=== PATIENT | male | born 1955 | race Caucasian/White ===

== ENCOUNTER 2016-12-22 06:34 | Emergency (ER) | payer OTHER ==
[~2016-12-22] VITALS: Ht 175.3 cm; Wt 92.0 kg
[~2016-12-22 06:34] MED LIST: ALBU6.7H INH; DOXY100T PO; LORA5SOL3 PO; LORC10TA PO; MEDR4PAK3 PO; PRED20 PO; VENTAER INH; Z.0.NO CURRENT MEDS; ZITH200S PO
[2016-12-22 06:38] VITALS: BP 181/86; PULSE 86; RESP 16; TEMP 98.9; O2SAT 98
--- NOTE | 2016-12-22 07:12 | PD ---
HPI Chief Complaint: Cold / Flu Symptoms Time Seen by Provider: 07:11 Travel History International Travel<30 days: No Contact w/Intl Traveler<30days: No Traveled to known affect area: No History of Present Illness HPI 61-year-old male presents the emergency department with five-day history of upper respiratory type symptoms including sore throat, congestion, runny nose, headache, and this morning he woke up with bilateral crusting eyes with purulent drainage. Patient denies cough or shortness of breath. He denies any abdominal symptoms. No significant fever. He's been treating his sore throat with ibuprofen and Tylenol. Patient states his eyes are gritty but not painful. He has no known drug allergies. PFSH Past Medical History Cardiovascular Problems: Yes (VENOUS INSUFFICIENCY RLE) Kidney Stones: Yes Past Surgical History Tonsillectomy: Yes Social History Alcohol Use: Yes (RARE) Tobacco Use: No Substance Use: No Allergies-Medications (Allergen,Severity, Reaction): Coded Allergies: No Known Allergies (Verified , 12/22/16) Reported Meds & Prescriptions Reported Meds & Active Scripts Active No Active Prescriptions or Reported Medications Review of Systems Except as stated in HPI: all other systems reviewed are Neg General / Constitutional: No: Fever, Chills Eyes: Positive: Drainage, Redness, Foreign Body Sensation, No: Diploplia, Blurred Vision, Photophobia, Pain, Tearing, Blind Spots, Visual changes, Blindness HENT: Positive: Sore Throat, Rhinitis, Rhinorrhea, Congestion, No: Headaches, Vertigo, Lightheadedness, Nosebleed, Neck Stiffness, Neck Pain, Gingival Bleeding, Dental Difficulties, Ear Discharge, Earache Cardiovascular: No: Chest Pain or Discomfort Respiratory: No: Cough, Shortness of Breath Gastrointestinal: No: Abdominal Pain Genitourinary: No: Dysuria Musculoskeletal: No: Pain Skin: No Rash Neurologic: No: Weakness Psychiatric: No: Depression Endocrine: No: Polydipsia Hematologic/Lymphatic: No: Easy Bruising Physical Exam Narrative GENERAL: Patient is no acute distress. SKIN: Warm and dry. Normal color. Normal turgor. HEAD: Atraumatic. Normocephalic. EYES: Pupils equal and round. No scleral icterus. Moderate bilateral conjunctival injection with moderate purulent drainage bilaterally.. ENT: No nasal bleeding or discharge. Mucous membranes pink and moist. Pharynx is erythema in the posterior pharynx consistent with viral pharyngitis. No significant lymphadenopathy. Uvula is midline. Airway is patent. TMs are clear bilaterally. No sinus tenderness to palpation bilaterally. NECK: Trachea midline. Supple nontender without significant lymphadenopathy. CARDIOVASCULAR: Regular rate and rhythm. RESPIRATORY: No accessory muscle use. Clear to auscultation. Breath sounds equal bilaterally. MUSCULOSKELETAL: Extremities without clubbing, cyanosis, or edema. No obvious deformities. NEUROLOGICAL: Awake and alert. No obvious cranial nerve deficits. Motor grossly within normal limits. Five out of 5 muscle strength in the arms and legs. Normal speech. PSYCHIATRIC: Appropriate mood and affect; insight and judgment normal. Data Data Last Documented VS Vital Signs Date Time Temp Pulse Resp B/P Pulse Ox O2 Delivery O2 Flow Rate FiO2 12/22/16 06:38 98.9 86 16 181/86 98 MDM Medical Decision Making Medical Screen Exam Complete: Yes Emergency Medical Condition: Yes Differential Diagnosis Upper respiratory infection. Bilateral conjunctivitis. Pharyngitis. Narrative Course Patient will be covered with azithromycin Dosepak as directed. Patient also given Maxitrol ophthalmic drops to both eyes every 4 hours while awake. Patient given Flonase nasal spray 2 sprays each nostril daily. Patient is [id number]-dkvwcjt cough meds as necessary. Patient is given a note for work for today. Patient to follow up if symptoms do not improve or worsen as discussed. Diagnosis Primary Impression: Conjunctivitis Qualified Code: H10.33 - Acute conjunctivitis of both eyes, unspecified acute conjunctivitis type Additional Impression: Pharyngitis, acute Qualified Code: J02.9 - Acute pharyngitis, unspecified etiology Referrals: Primary Care Physician Patient Instructions: Conjunctivitis (ED), General Instructions Departure Forms: Work Release Enter return to work date: Dec 23, 2016 Additional Instructions: Patient will be covered with azithromycin Dosepak as directed. Patient also given Maxitrol ophthalmic drops to both eyes every 4 hours while awake. Patient given Flonase nasal spray 2 sprays each nostril daily. Patient is ncvq-ben-ciabunm cough meds as necessary. Patient is given a note for work for today. Patient to follow up if symptoms do not improve or worsen as discussed. Med/Other Pt SpecificInfo: Prescription(s) given Scripts Fwyeblqw-Qccwmjylt-Zexelvcersuyn Opth Drops (Maxitrol Opth Drops)3.5-10,000-0.1 Mg-Units-% Susp1 Drop EACH EYE Q4H #1 BOTTLE Prov:Margarito Lieberman MD 12/22/16 Fluticasone Nasal [place] (Flonase Nasal [place])50 Mcg/Act [id number] Mcg EACH NARE DAILY #1 BOTTLE Prov:Margarito Lieberman MD 12/22/16 Azithromycin 250 Mg [id number] Mg PO DIRECTED #6 TAB Take 2 tabs (500 mg) on day 1 then 1 tab daily x 4 days. Prov:Margarito Lieberman MD 12/22/16 Disposition: 01 DISCHARGE HOME Condition: Stable Raphael Hernandez Dec 22, 2016 07:11
[2016-12-22] MEDS ORDERED: FLUT1SPR5 EACH NARE (07:19)
[2016-12-22] MEDS ORDERED: MAXI5O EACH EYE (07:19)
[2016-12-22] MEDS ORDERED: AZIT250T3 PO (07:19)
== END 2016-12-22 07:31 | disposition home or self-care (01) ==
LOC: NEPK 06:34
DX: H10.33 Unspecified acute conjunctivitis, bilateral (principal); J02.9 Acute pharyngitis, unspecified
CPT/HCPCS: 99284

== ENCOUNTER 2017-04-16 09:58 | Emergency (ER) | payer OTHER ==
[~2017-04-16] VITALS: Ht 175.3 cm; Wt 85.0 kg
[~2017-04-16 09:58] MED LIST changes: -ALBU6.7H INH; +AZIT250T3 PO; -DOXY100T PO; +FLUT1SPR5 EACH NARE; -LORA5SOL3 PO; -LORC10TA PO; +MAXI5O EACH EYE; -MEDR4PAK3 PO; -PRED20 PO; -VENTAER INH; -Z.0.NO CURRENT MEDS; -ZITH200S PO
[2017-04-16 09:59] VITALS: BP 171/92; PULSE 81; RESP 26; TEMP 98.4; O2SAT 95
[2017-04-16] MEDS ORDERED: ALBU6.7H INH (10:15)
[2017-04-16] MEDS: RESP: ALBUTEROL 2.5 MG/3 ML NEB (SCH) INH ×2 (10:43→10:44)
[2017-04-16] MEDS ORDERED: methylPREDNISolone SOD SUCC 125 MG/2 ML VIAL IV PUSH ONE (10:45)
[2017-04-16] MEDS ORDERED: SODIUM CHLORIDE 0.9% FLUSH 10 ML FLUSH IVF PRN (10:45)
[2017-04-16] MEDS ORDERED: RESP: ALBUTEROL 2.5 MG/IPRATROPIUM 0.5 MG NEB (SCH) INH ONE (10:45)
[2017-04-16 11:00] VITALS: O2SAT 96
--- NOTE | 2017-04-16 11:00 | RADRPT ---
EXAM DATE/TIME: 04/16/2017 10:45 [facility] COMPARISON: No previous studies available for comparison. INDICATIONS : Shortness of breath and wheezing. MEDICAL HISTORY : Asthma. SURGICAL HISTORY : None. ENCOUNTER: Initial ACUITY: 1 day PAIN SCORE: 0/10 LOCATION: Bilateral chest FINDINGS: A single view of the chest demonstrates the lungs to be symmetrically aerated without evidence of mas s, infiltrate or effusion. The cardiomediastinal contours are unremarkable. Osseous structures are intact. CONCLUSION: No evidence of acute cardiopulmonary disease. Warren Jules MD on April 16, 2017 at 10:58 Board Certified Radiologist. This report was verified electronically.
--- NOTE | 2017-04-16 11:00 | PD ---
HPI Chief Complaint: Respiratory Symptoms Time Seen by Provider: 10:31 Travel History International Travel<30 days: No Contact w/Intl Traveler<30days: No Traveled to known affect area: No History of Present Illness HPI This is a 61-year-old gentleman with history of bronchitis, who presents today with complaints of wheezing and coughing 4 days. The patient denies any fevers , chills. Patient does state that the wheezing and coughing is keeping him up at night. He is states that his cough is productive with brown phlegm. There are no other complaints time my examination. PFSH Past Medical History Asthma: Yes Cardiovascular Problems: Yes (VENOUS INSUFFICIENCY RLE) Diminished Hearing: No Kidney Stones: Yes Tetanus Vaccination: Unknown Influenza Vaccination: No Past Surgical History Tonsillectomy: Yes Social History Alcohol Use: Yes (RARE) Tobacco Use: No Substance Use: No Allergies-Medications (Allergen,Severity, Reaction): Coded Allergies: No Known Allergies (Verified , 04/16/17) Reported Meds & Prescriptions Reported Meds & Active Scripts Active Medrol Dosepak (Methylprednisolone) 4 Mg Dspk 4 Mg PO DIRECTED Per Pharmacist direction Robitussin Cough-Chest Dm Liq (Guaifenesin/Dextromethorphan) 100 Mg-5 Mg/5 Ml Liquid 5 Ml PO Q6HR NEB Zithromax Z-Norm (Azithromycin) 250 Mg Dspk 250 Mg PO DIRECTED 500 MG (2 tabs) day 1, then 1 tab days 2-5. Reported Proventil Hfa 6.7 GM Inh (Albuterol Sulfate) 90 Mcg/Act Aer 2 Puff INH Q4-6H PRN Review of Systems Except as stated in HPI: all other systems reviewed are Neg General / Constitutional: No: Fever, Chills HENT: No: Headaches, Lightheadedness Cardiovascular: No: Chest Pain or Discomfort, Palpitations Respiratory: Positive: Cough, Shortness of Breath, Wheezing Gastrointestinal: No: Nausea, Vomiting, Abdominal Pain Genitourinary: No: Frequency, Dysuria Musculoskeletal: No: Weakness, Pain Neurologic: No: Weakness, Dizziness Physical Exam Narrative GENERAL: Well-nourished, well-developed patient. SKIN: Focused skin assessment warm/dry. HEAD: Normocephalic. EYES: No scleral icterus. No injection or drainage. NECK: Supple, trachea midline. No JVD or lymphadenopathy. CARDIOVASCULAR: Regular rate and rhythm without murmurs, gallops, or rubs. RESPIRATORY: Breath sounds equal bilaterally. Bilateral expiratory wheezes. No Rales. GASTROINTESTINAL: Abdomen soft, non-tender, nondistended. MUSCULOSKELETAL: No cyanosis, or edema. NEUROLOGICAL: Awake and alert. Cranial nerves II through XII intact. Motor grossly within normal limits. Five out of 5 muscle strength in all muscle groups. Normal speech. Data Data Last Documented VS Vital Signs Date Time Temp Pulse Resp B/P (MAP) Pulse Ox O2 Delivery O2 Flow Rate FiO2 04/16/17 12:30 85 22 155/80 (105) 96 Room Air 04/16/17 09:59 98.4 Orders Orders Influenzae A/B Antigen (04/16/17 10:32) Iv Access Insert/Monitor (04/16/17 10:32) Ecg Monitoring (04/16/17 10:32) Oximetry (04/16/17 10:32) Oxygen Administration (04/16/17 10:32) Chest, Single Ap (04/16/17 10:32) Sodium Chloride 0.9% Flush (Ns Flush) (04/16/17 10:45) Methylprednisolone So Succ Inj (Solumedr (04/16/17 10:45) Albuterol-Ipratropium Neb (Duoneb Neb) (04/16/17 10:45) Albuterol Neb (Albuterol Neb) (04/16/17 10:45) MDM Medical Decision Making Medical Screen Exam Complete: Yes Emergency Medical Condition: Yes Differential Diagnosis Bronchitis versus pneumonia versus pneumothorax Narrative Course 61-year-old male presents with complaints of cough and congestion 4 days. Patient has a history of bronchitis. He'll be discharged with a prescription for antibiotics and steroids. Also be given a prescription for cough syrup. He is instructed to return of he denies any worsening symptoms. There is no reported fevers, chills. Chest x-ray shows no evidence of pneumonia. Diagnosis Primary Impression: Bronchitis Med/Other Pt SpecificInfo: Prescription(s) given Scripts Methylprednisolone Dosepak (Medrol Dosepak) 4 Mg Dspk 4 MG PO DIRECTED, #1 DSPK 0 Refills Per Pharmacist direction Prov: Gabino Jarvis MD 04/16/17 Guaifenesin/Dextromethorphan (Robitussin Cough-Chest Dm Liq) 100 Mg-5 Mg/5 Ml Liquid 5 ML PO Q6HR NEB for Cough, #100 ML Prov: Gabino Jarvis MD 04/16/17 Azithromycin (Zithromax Z-Norm) 250 Mg Dspk 250 MG PO DIRECTED for Infection, #1 DSPK 0 Refills 500 MG (2 tabs) day 1, then 1 tab days 2-5. Prov: Gabino Jarvis MD 04/16/17 Disposition: 01 DISCHARGE HOME Condition: Stable Gabino Jarvis MD Apr 16, 2017 11:00
[2017-04-16 12:30] VITALS: BP 155/80; PULSE 85; RESP 22; O2SAT 96
[2017-04-16] MEDS ORDERED: GUAI237L PO (13:13)
[2017-04-16] MEDS ORDERED: ZITHTAB PO (13:13)
[2017-04-16] MEDS ORDERED: MEDR4PAK PO (13:16)
[2017-04-16 13:45] VITALS: BP 157/81
== END 2017-04-16 13:46 | disposition home or self-care (01) ==
LOC: NEPE 09:58
DX: J40 Bronchitis, not specified as acute or chronic (principal); R05 Cough; J45.909 Unspecified asthma, uncomplicated
CPT/HCPCS: 71010; 87804; 94640; 94664; 96374; 99284; J2930; J7613